=== PATIENT | female | born 1935 | race Caucasian/White ===

== ENCOUNTER → 2016-12-21 | Outpatient (CLI) | payer OTHER ==
[~2016-12-21] MED LIST: ASPEC325 PO; ASPI81TA28 PO; CALC-354 PO; CHOL100027 PO; CYAN10005 PO; GLUC500C60 PO; LEVO75TA5 PO; MULT-506 PO
[2016-12-21 12:09] LABS: BASO % 0.6 %; BASO ABS # 0.04 K/uL (0-0.2); COMPLETE YES; EOS % 1.6 %; HEMATOCRIT 42.2 % (37-47); IG% 0.1 %; LYMPH % 33.9 %; LYMPH ABS # 2.37 K/uL (1.2-3.4); MEAN CELL VOLUME 87.6 fL (80-100); MEAN CORPUSCULAR HEMOGLOBIN 30.1 pg (25-34); MEAN CORPUSCULAR HGB CONC 34.4 g/dl (32-36); MEAN PLATELET VOLUME 10.1 fL (7.4-10.4); MONO % 11.2 %; NEUT % 52.6 %; PLATELET COUNT 299 K/uL (130-400); RED BLOOD COUNT 4.82 M/uL (4.2-5.4); WHITE BLOOD COUNT 6.99 K/uL (4.8-10.8)
[2016-12-21 12:19] LABS: BLOOD UREA NITROGEN 20 mg/dl (7-18); BUN/CREATININE RATIO 20.8 (10-20); CALCIUM 9.9 mg/dl (8.5-10.1); CARBON DIOXIDE 26 mmol/L (21-32); CHLORIDE 106 mmol/L (98-107); CREATININE 0.97 mg/dl (0.60-1.20); GLUCOSE 84 mg/dl (70-99); POTASSIUM 4.1 mmol/L (3.5-5.1); SODIUM 140 mmol/L (136-145)
== END | disposition home or self-care (01) ==
LOC: C.LAB 10:50
PROVIDERS: ATTEND Physician Assistant Medical
DX: E03.9 Hypothyroidism, unspecified (principal); E83.52 Hypercalcemia; R42 Dizziness and giddiness

== ENCOUNTER → 2017-06-04 | Outpatient (CLI) | payer OTHER ==
--- NOTE | 2017-06-04 10:59 | DIAGNOSTIC IMAGING REPORT ---
(CHEST) THORAX WITHOUT CT DOSE: 234.06 mGycm HISTORY: Pulmonary nodules R91.1 Pulmonary nodule pulmonary nodules right lung TECHNIQUE: Multiaxial CT images of the chest were performed without contrast. A dose lowering technique was utilized adhering to the principles of ALARA. COMPARISON: 06/01/2016 FINDINGS: Unchanging micronodule of the right lung. No interval or progressive pulmonary nodules. All dimensions are identical. Hilar and mediastinal regions show no significant adenopathy. IMPRESSION: 1. Stable exam compared to the prior study. 2. Unchanging right hemithoracic nodularity. 3. No evidence for nodularity or additional pathologic change The above report was generated using voice recognition software. It may contain grammatical, syntax or spelling errors. Electronically signed by: Kye Cruz M.D. 06/04/2017 10:58 AM Dictated Date/Time: 06/04/2017 10:55 AM
== END | disposition home or self-care (01) ==
LOC: C.CTS 10:40
PROVIDERS: ATTEND Internal Medicine
DX: R91.1 Solitary pulmonary nodule (principal)

== ENCOUNTER 2018-01-07 10:44 | Emergency (ER) | payer OTHER ==
[~2018-01-07] VITALS: Ht 165.1 cm; Wt 62.5 kg
[~2018-01-07 10:44] MED LIST changes: -LEVO75TA5 PO; -MULT-506 PO
[2018-01-07 10:51] VITALS: Ht 165.1 cm; Wt 62.5 kg
[2018-01-07] MEDS ORDERED: COEN50CA2 (11:20)
[2018-01-07] MEDS ORDERED: FLAX10007 (11:20)
[2018-01-07] MEDS ORDERED: ALBUT/IPRATROP 3MG/0.5MG NEB 3 ML VIAL INH STA (11:41)
[2018-01-07 12:01] VITALS: O2SAT 100
[2018-01-07 12:18] LABS: BASO % 0.6 %; BASO ABS # 0.04 K/uL (0-0.2); EOS % 1.6 %; EOS ABS # 0.11 K/uL (0-0.5); HEMATOCRIT 42.6 % (37-47); IG# 0.01 K/uL (0.00-0.02); LYMPH % 28.5 %; LYMPH ABS # 1.95 K/uL (1.2-3.4); MEAN CELL VOLUME 89.3 fL (80-100); MEAN CORPUSCULAR HEMOGLOBIN 31.4 pg (25-34); MEAN CORPUSCULAR HGB CONC 35.2 g/dl (32-36); MEAN PLATELET VOLUME 9.7 fL (7.4-10.4); MONO % 10.1 %; MONO ABS # 0.69 K/uL (0.11-0.59); NEUT % 59.1 %; NEUT ABS # 4.04 K/uL (1.4-6.5); PLATELET COUNT 266 K/uL (130-400); RED CELL DISTRIBUTION WIDTH CV 13.5 % (11.5-14.5); RED CELL DISTRIBUTION WIDTH SD 44.6 fL (36.4-46.3); WHITE BLOOD COUNT 6.84 K/uL (4.8-10.8)
--- NOTE | 2018-01-07 12:26 | DIAGNOSTIC IMAGING REPORT ---
CHEST 2 VIEWS ROUTINE CLINICAL HISTORY: SOB dyspnea COMPARISON STUDY: 05/07/2016 FINDINGS: Mild chronic interstitial prominence throughout both hemithoraces. No well-defined focal infiltrate. Diaphragms smooth. Calcifications are sharp. IMPRESSION: Mild interstitial prominence throughout both hemithoraces. The bulk of this is chronic. I cannot exclude a mild component of superimposed bronchitis The above report was generated using voice recognition software. It may contain grammatical, syntax or spelling errors. Electronically signed by: Kye Cruz M.D. 01/07/2018 12:25 PM Dictated Date/Time: 01/07/2018 12:23 PM
[2018-01-07 12:27] LABS: INR 0.9 (0.9-1.1); PTT PATIENT 24.2 SECONDS (21.0-31.0)
[2018-01-07 12:31] LABS: ALBUMIN 3.7 gm/dl (3.4-5.0); ALT/SGPT 44 U/L (12-78); AST/SGOT 25 U/L (15-37); BLOOD UREA NITROGEN 15 mg/dl (7-18); CALCIUM 9.4 mg/dl (8.5-10.1); CARBON DIOXIDE 22 mmol/L (21-32); CREATININE 0.92 mg/dl (0.60-1.20); GLUCOSE 86 mg/dl (70-99); LIPASE 246 U/L (73-393); POTASSIUM 3.9 mmol/L (3.5-5.1); SODIUM 140 mmol/L (136-145)
[2018-01-07 12:36] LABS: ALKALINE PHOSPHATASE 70 U/L (45-117); CKMB 1.9 ng/ml (0.5-3.6); TOTAL PROTEIN 7.2 gm/dl (6.4-8.2)
[2018-01-07 13:03] VITALS: TEMP 37.1
[2018-01-07] MEDS ORDERED: LEVO75TA5 PO (13:19)
[2018-01-07] MEDS ORDERED: MULT-506 PO (13:19)
[2018-01-07] MEDS ORDERED: VNTHFA/IN INH (14:17)
[2018-01-07] MEDS ORDERED: AZITTAB PO (14:17)
--- NOTE | 2018-01-07 14:18 | EMERGENCY ROOM VISIT NOTE ---
History First contact with patient: 11:29 Chief Complaint: SHORTNESS OF BREATH Stated Complaint: SOB History of Present Illness The patient is a 82 year old female who presents to the Emergency Room via ALS with complaints of shortness of breath. The patient states that she has been having problems with shortness of breath for the past year but got worse over the last week. The patient states that the shortness of breath can occur whether she is laying down and sitting up or standing. The patient denies any chest pain. She states that "I just cannot get a deep enough breath". The patient denies any recent URI symptoms of fever, cough, head congestion, sore throat. The patient denies any leg swelling. The patient denies any recent travel. Patient is not on any hormone replacement therapy. The patient has never smoked. The patient states that she has been doctoring with her family doctor and has been referred to both cardiology and pulmonology for her shortness of breath. She had a stress test done in September which she states was negative. She also states that she had pulmonary function tests which were normal. She is unsure of her doctors names except for her family doctor who is Dr. Valdo Cloud. The patient also states that she has been under slightly increased stress lately because her dog just and she just received its ashes this week. Patient also has been complaining of some dizziness which she states she gets when she is short of breath. She also states that her blood pressure was much higher today when she checked in. She states normally her blood pressure is like 115/65. She states she works out on a regular basis and does gardening routinely. She is very active. She states she called her family doctor this morning due to the increased shortness of breath and she was instructed to come to the emergency room. Review of Systems 10 system review was performed and was negative unless stated otherwise history of present illness. Past Medical/Surgical History Surgical Problems: (1) S/P cholecystectomy (2) Status post surgical removal of ganglion cyst Family History Diabetes mellitus Gallbladder disease Heart disease Hypertension Lung disease Social History Smoking Status: Never Smoker Alcohol Use: none Marital Status: Housing Status: lives alone Occupation Status: retired Current/Historical Medications Scheduled Aspirin (Aspirin Ec), 81 MG PO Q2D Calcium Carbonate-Cholecalcife (Caltrate 600+D), 1 TAB PO DAILY Cholecalciferol (Vitamin D 1000 Unit), 1,000 INTER.UNIT PO QAM Cyanocobalamin (Vitamin B-12), 1,000 MCG PO DAILY Levothyroxine Sodium (Levothyroxine Sodium), 75 MCG PO QAM Multivitamin (Multivitamin), 1 TAB PO QAM Miscellaneous Medications Coenzyme Q10 (Ubidecarenone) (Co Q-10), Unknown Dose Flaxseed (Linseed) (Flax Seed Oil) Physical Exam Vital Signs Date Time Temp Pulse Resp B/P (MAP) Pulse Ox O2 Delivery O2 Flow Rate FiO2 01/07/18 13:46 150/72 01/07/18 13:44 69 12 98 01/07/18 13:31 158/74 01/07/18 13:29 69 13 99 01/07/18 13:25 71 01/07/18 13:16 145/82 01/07/18 13:14 68 12 100 01/07/18 13:03 37.1 79 19 170/78 100 Room Air 01/07/18 13:01 179/85 01/07/18 13:00 168/100 01/07/18 12:59 73 178/78 79 168/100 79 179/85 01/07/18 12:59 74 16 178/78 100 01/07/18 12:44 71 17 100 01/07/18 12:29 73 21 100 01/07/18 12:14 72 19 100 01/07/18 12:01 69 19 170/78 100 Room Air 01/07/18 12:01 100 Room Air 01/07/18 12:01 170/78 01/07/18 11:59 67 20 100 01/07/18 11:58 166/79 01/07/18 11:44 73 14 98 01/07/18 11:29 69 18 100 01/07/18 11:14 69 16 99 01/07/18 10:59 75 18 100 01/07/18 10:51 100 Room Air 01/07/18 10:51 37.1 80 28 178/84 100 Room Air 01/07/18 10:51 100 Room Air 01/07/18 10:48 82 01/07/18 10:47 178/84 Physical Exam GENERAL: 82-year-old white female appears in no acute distress. MENTAL Status: Alert and oriented 3. EYES: PERRLA. EOMs intact. EARS: Canals clear. TMs without fluid level noted. NECK: Supple, no lymphadenopathy noted. No carotid bruits noted. LUNGS: Clear auscultation without wheezes rales or rhonchi. CARDIAC: Regular rate and rhythm without murmur. Pulses is full and equal throughout. ABDOMEN: Positive bowel sounds all 4 quadrants. Soft, nontender to palpation without organomegaly or masses. NEURO:Cranial nerves two through 12 intact. Cerebellar function intact with [id number]. Fine motor intact with alternating finger motions. LOWER EXTREMITIES: No cyanosis or edema noted. Calves are nontender to palpation. Medical Decision & Procedures ER Provider Diagnostic Interpretation: CHEST 2 VIEWS ROUTINE CLINICAL HISTORY: SOB dyspnea COMPARISON STUDY: 05/07/2016 FINDINGS: Mild chronic interstitial prominence throughout both hemithoraces. No well-defined focal infiltrate. Diaphragms smooth. Calcifications are sharp. IMPRESSION: Mild interstitial prominence throughout both hemithoraces. The bulk of this is chronic. I cannot exclude a mild component of superimposed bronchitis The above report was generated using voice recognition software. It may contain grammatical, syntax or spelling errors. Laboratory Results 01/07/18 12:06 Red Blood Count 4.77, Mean Corpuscular Volume 89.3, Mean Corpuscular Hemoglobin 31.4, Mean Corpuscular Hemoglobin Concent 35.2, Mean Platelet Volume 9.7, Neutrophils (%) (Auto) 59.1, Lymphocytes (%) (Auto) 28.5, Monocytes (%) (Auto) 10.1, Eosinophils (%) (Auto) 1.6, Basophils (%) (Auto) 0.6, Neutrophils # (Auto ) 4.04, Lymphocytes # (Auto) 1.95, Monocytes # (Auto) 0.69, Eosinophils # (Auto ) 0.11, Basophils # (Auto) 0.04 01/07/18 12:06 Test 01/07/18 12:06 01/07/18 12:12 White Blood Count 6.84 K/uL (4.8-10.8) Red Blood Count 4.77 M/uL (4.2-5.4) Hemoglobin 15.0 g/dL (12.0-16.0) Hematocrit 42.6 % (37-47) Mean Corpuscular Volume 89.3 fL (80-100) Mean Corpuscular Hemoglobin 31.4 pg (25-34) Mean Corpuscular Hemoglobin Concent 35.2 g/dl (32-36) Platelet Count 266 K/uL (130-400) Mean Platelet Volume 9.7 fL (7.4-10.4) Neutrophils (%) (Auto) 59.1 % Lymphocytes (%) (Auto) 28.5 % Monocytes (%) (Auto) 10.1 % Eosinophils (%) (Auto) 1.6 % Basophils (%) (Auto) 0.6 % Neutrophils # (Auto) 4.04 K/uL (1.4-6.5) Lymphocytes # (Auto) 1.95 K/uL (1.2-3.4) Monocytes # (Auto) 0.69 K/uL (0.11-0.59) Eosinophils # (Auto) 0.11 K/uL (0-0.5) Basophils # (Auto) 0.04 K/uL (0-0.2) RDW Standard Deviation 44.6 fL (36.4-46.3) RDW Coefficient of Variation 13.5 % (11.5-14.5) Immature Granulocyte % (Auto) 0.1 % Immature Granulocyte # (Auto) 0.01 K/uL (0.00-0.02) Prothrombin Time 9.9 SECONDS (9.0-12.0) Prothromb Time International Ratio 0.9 (0.9-1.1) Activated Partial Thromboplast Time 24.2 SECONDS (21.0-31.0) Partial Thromboplastin Ratio 0.9 Anion Gap 6.0 mmol/L (3-11) Est Creatinine Clear Calc Drug Dose 43.2 ml/min Estimated GFR () 67.7 Estimated GFR (Non- 58.4 BUN/Creatinine Ratio 16.3 (10-20) Calcium Level 9.4 mg/dl (8.5-10.1) Total Bilirubin 0.3 mg/dl (0.2-1) Direct Bilirubin < 0.1 mg/dl (0-0.2) Aspartate Amino Transf (AST/SGOT) 25 U/L (15-37) Alanine Aminotransferase (ALT/SGPT) 44 U/L (12-78) Alkaline Phosphatase 70 U/L (45-117) Total Creatine Kinase 94 U/L (26-192) Creatine Kinase MB 1.9 ng/ml (0.5-3.6) Creatine Kinase MB Ratio 2.0 (0-3.0) Troponin I < 0.015 ng/ml (0-0.045) Pro-B-Type Natriuretic Peptide 232 pg/ml (0-1800) Total Protein 7.2 gm/dl (6.4-8.2) Albumin 3.7 gm/dl (3.4-5.0) Lipase 246 U/L (73-393) Bedside D-Dimer 341 ng/mlFEU (0-450) Medications Administered Medications (Trade) Dose Ordered Sig/Theresa Route Start Time Stop Time Status Last Admin Dose Admin Albuterol/ Ipratropium (Duoneb) 3 ml NOW STAT INH 01/07/18 11:41 01/07/18 11:44 DC 01/07/18 12:08 3 ML ECG Per My Interpretation Indication: SOB/dyspnea Rhythm: normal sinus Findings: no acute ischemic change Change: no significant change ED Course She was evaluated. The patient is EMR and medication list were reviewed. I had the family independence case manager obtain the patient's prior stress test which was done at [facility] on October 01, 2017 and was negative. She also had a pulmonary function test done in [place] [address] becker which revealed borderline normal function. She also had a CT performed of her chest on June 04, 2017 which revealed a micronodule in the right lung which was unchanged from prior CT of June 01, 2016. The patient was placed on a monitor and continuous pulse ox. IV access was obtained. CBC and differential, renal profile, coags, CK-MB, renal profile, LFTs and lipase levels were ordered. Troponin, BNP and [id number]-[id number] d-dimer was also ordered. Chest x-ray was ordered interpreted by the radiologist as above with possibly mild bronchitis but otherwise no acute finding.. EKG was ordered interpreted as above without any acute findings. Orthostatic vitals were ordered. Orthostatics were normal. The patient's blood pressure remained elevated throughout ER stay. Labs are reviewed and were unremarkable. Troponin was normal. D-dimer was within normal range. Patient was informed of all findings. The patient was independently evaluated by Dr. Gonzalez who agreed with treatment plan. The patient was discharged home in stable condition. Medical Decision Differential diagnosis include pulmonary embolus, acute MN, pneumonia, bronchitis, CHF, The patient has been under the care of Dr. Valdo Cloud for her shortness of breath and has been referred to both cardiology and pulmonology and has had an extensive workup which has been essentially negative. I do not feel the patient needs to be admitted for further evaluation. [place] Drug Monitoring Program Search Results: patient reviewed within database Medication Reconcilliation Current Medication List: was personally reviewed by me Blood Pressure Screening Patient's blood pressure: Elevated blood pressure Blood pressure disposition: Referred to PCP Impression Primary Impression: Acute bronchitis Additional Impressions: Elevated blood pressure reading Dizziness Departure Information Dispostion Home / Self-Care Condition GOOD Prescriptions Azithromycin (ZITHROMAX Z-EDGAR) 250 Mg Tab 1 PKT PO UD for 5 Days, #1 PKT Prov: Tammy Cruz PA-C 01/07/18 Albuterol Hfa (VENTOLIN HFA) 200 Puffs/[id number] Mcg Aers 2 PUFFS INH QID for 5 Days, #1 INHALER Prov: Tammy Cruz PA-C 01/07/18 Referrals Valdo Cloud M.D. (PCP) Forms HOME CARE DOCUMENTATION FORM, IMPORTANT VISIT INFORMATION Patient Instructions ED Dyspnea Shortness of Breath, My [facility] Additional Instructions Keep well-hydrated. Take Z-Edgar as prescribed. Use a Ventolin HFA inhaler 2 puffs 4 times a day for 5 days then on an as-needed basis for shortness of breath. Recommend follow-up with your family doctor on Saturday for recheck of your symptoms as well as recheck of your blood pressure since it was elevated in today's ER visit. If you experience any severe chest pain, worsening of the shortness of breath return to ER. Problem Qualifiers Primary Impression: Acute bronchitis Bronchitis organism: unspecified organism Qualified Codes: J20.9 - Acute bronchitis, unspecified
[2018-01-07 14:36] VITALS: BP 153/75; PULSE 69; O2SAT 100
--- NOTE | 2018-01-07 18:39 | EMERGENCY ROOM VISIT NOTE ---
ED Visit Note First contact with patient: 11:29 I have personally evaluated this patient examined her and reviewed the pertinent labs and data. I have discussed the case with Tammy Cruz, the physician assistant reading teacher and agree with the plan. Please refer to the PA note. This patient has had chronic shortness of breath. On my exam she looks well and is in no distress. Her lungs are clear. Chest x-ray shows no definite acute findings. she has nothing to suggest cardiac disease her EKG is unremarkable. Her d-dimer is not elevated. She did feel better with neb. We will give her albuterol inhaler and antibiotics and have her follow-up with her surfacer her regular doctor.
== END 2018-01-07 14:38 | disposition home or self-care (01) ==
LOC: EDBD 10:44 → C.EDC 10:45
DX: J20.9 Acute bronchitis, unspecified (principal); R03.0 Elevated blood-pressure reading, without diagnosis of hypertension; R42 Dizziness and giddiness

== ENCOUNTER → 2018-01-13 | Outpatient (CLI) | payer OTHER ==
[~2018-01-13] MED LIST changes: -ASPEC325 PO; +AZITTAB PO; +COEN50CA2; +FLAX10007; -GLUC500C60 PO; +LEVO75TA5 PO; +MULT-506 PO; +VNTHFA/IN INH
== END | disposition home or self-care (01) ==
LOC: C.LABBC 11:43
PROVIDERS: ATTEND Physician Assistant Medical
DX: E03.9 Hypothyroidism, unspecified (principal)

== ENCOUNTER 2020-04-22 08:30 | Observation (INO) ==
--- NOTE | 2020-04-15 12:34 | PAT Medication Instructions ---
Medication Instructions Date of Service April 15, 2020 Home Medications calcium carbonate 600 mg (1,500 mg)-vitamin D3 400 unit tablet 1 tab PO PM cholecalciferol (vitamin D3) 25 mcg (1,000 unit) capsule 1,000 unit PO QPM coenzyme Q10 200 mg capsule 200 mg PO QAM cyanocobalamin (vitamin B-12) 1,000 mcg tablet 1,000 mcg PO QAM aspirin [Aspir-81] 81 mg PO Q OTHER DAY levothyroxine 75 mcg PO QAM [id number] fumarate-FA [] 1 tab PO DAILY biotin 1 mg PO DAILY STOP taking 2 weeks before surgery If surgery is within 2 weeks, stop taking as soon as possible. coenzyme Q10 200 mg capsule 200 mg PO QAM DO NOT take the morning of surgery cyanocobalamin (vitamin B-12) 1,000 mcg tablet 1,000 mcg PO QAM [id number] fumarate-FA [] 1 tab PO DAILY biotin 1 mg PO DAILY Take morning of surgery With a small sip of water, OTHERWISE NOTHING TO EAT OR DRINK AFTER MIDNIGHT: aspirin [Aspir-81] 81 mg PO Q OTHER DAY (if scheduled) levothyroxine 75 mcg PO QAM Take evening before surgery calcium carbonate 600 mg (1,500 mg)-vitamin D3 400 unit tablet 1 tab PO PM cholecalciferol (vitamin D3) 25 mcg (1,000 unit) capsule 1,000 unit PO QPM Other Notes If you have any questions please call us at [phone] or [phone] or [phone] or [phone]
--- NOTE | 2020-04-18 09:04 | Anesthesiology Consultation ---
Date of Service April 18, 2020 Assessment & Plan (1) Encounter for pre-operative examination: COVID Status: As of 04/18 assessment, patient denies travel to endemic area, known exposure/sick contacts, or symptoms of COVID19. Patient instructed that they and their household members must follow strict social distancing guidelines, wear a mask in public and avoid travel for 14 days prior to surgery. Preoperative COVID19 testing to be completed prior to surgery per surgeon's arrangements. Patient made aware to self-isolate as much as possible between COVID testing and surgery. Chart Review Chart Review: Acceptable Risk for Surgery and Patient seen in Pre Admission Testing Teaching & Discussion Instructed NPO after midnight before surgery, except medications with 15 cc of water. Medication instructions provided according to the PAT guidelines. History Surgery Operation Date: 04/22/20 12:30 Proposed Procedures p Left Reverse Total Shoulder Arthroplasty - Juan Lindo, Height/Weight Height: 5 ft 5 in Weight: 60.8 kg Allergies Allergy/AdvReac Type Severity Reaction Status Date / Time capsaicin Allergy Mild Liver Verified 04/18/20 08:48 complications diclofenac Allergy Mild Liver Verified 04/18/20 08:48 complications Diclopak Allergy Mild "LIVER Verified 01/07/18 11:15 COMPLICATIONS" Sulfa (Sulfonamide Allergy Unknown Itching Verified 04/18/20 08:48 Antibiotics) and redness tetanus toxoid, adsorbed AdvReac Mild Redness, Verified 04/18/20 08:48 warmth morphine AdvReac Unknown Hypotension Verified 04/14/20 10:47 Medications Home Medications Medication Instructions Recorded Confirmed Last Taken calcium carbonate 600 mg (1,500 1 tab PO PM tab 02/25/19 04/14/20 10/19/19 mg)-vitamin D3 400 unit tablet cholecalciferol (vitamin D3) 25 1,000 unit PO QPM #90 cap 02/25/19 04/14/20 10/19/19 mcg (1,000 unit) capsule coenzyme Q10 200 mg capsule 200 mg PO QAM cap 02/25/19 04/14/20 10/19/19 cyanocobalamin (vitamin B-12) 1,000 mcg PO QAM #90 tab 02/25/19 04/14/20 10/19/19 1,000 mcg tablet aspirin [Aspir-81] 81 mg PO Q OTHER DAY 10/19/19 04/14/20 10/16/19 levothyroxine 75 mcg PO QAM 10/19/19 04/14/20 10/20/19 05:15 [id number] fumarate-FA 1 tab PO DAILY 04/14/20 04/14/20 Unknown [] biotin 1 mg PO DAILY 04/14/20 04/14/20 Unknown Past Medical History Medical History De Quervain's tenosynovitis, right Hearing difficulty Hip arthritis Hyperlipidemia Hypotension occasional, advised to increase salt if recurrence Hypothyroidism Impaired fasting glucose Pulmonary nodule under surveillance, stable Exercise / Class Metabolic Activity II 4-5 Yardwork/Stairs/Walk up hill (Denies CP or SOB with 1 FOS) Past Family History Family History Mother Hypertension Cardiac disorder Stroke Asthma Father Myocardial infarction Brother Prostate cancer Denies family history of Ovarian cancer Breast cancer Colorectal cancer Past Surgical History Surgical History H/O cataract extraction R/L H/O vaginal hysterectomy History of basal cell carcinoma History of breast biopsy LEFT History of colonoscopy History of liver biopsy History of salpingo-oophorectomy History of SCC (squamous cell carcinoma) of skin NOSE History of tonsillectomy Hx of cholecystectomy S/P skin biopsy Status post de Quervain's release surgery 09/2019, Dr Sin Past Anesthesia History No Hx of Anesthesia Complications and No Family Hx of Anesthesia Complications History of PONV No Hx of PONV and Hx of Motion Sickness (occasional) Social History Smoking Status: Never smoker Do You Dip or Chew Tobacco: No Hx Alcohol Use: No Hx Substance Use: No substance use type: does not use Review of Systems Pt denies any recent chest pain, shortness of breath, palpitations, cough, fever, URI, or uncontrolled acid reflux. Physical Exam Vital Signs BP: 123/74 P: 80bpm SPO2: 98% RA T: 97.7 F R: 12 ENMT Mouth: + dental restorations (partial upper and lower); no chipped teeth and no loose teeth Thyromental Distance: < 3.5 Finger Breadths (2.5) Mallampati Class: I Neck + shortened thyromental distance; neck extension not limited Respiratory normal respiratory effort Auscultation: lungs clear to auscultation bilaterally Cardiovascular Rate/Rhythm: regular rate and regular rhythm Heart Sounds: no murmur Vessels: no carotid bruit Extremities: no edema Testing Laboratory Results PT 10.4 Seconds (9.0-12.0) 04/18/20 09: INR 1.0 (0.9-1.1) 04/18/20 09: APTT 26.6 Seconds (21.0-31.0) 04/18/20 09:26 Blood Type B Positive 04/18/20 09:26 Antibody Screen NEGATIVE 04/18/20 09:26 03/17/20 WBC: 7.62 H/H: 15/44.7 PLATELETS: 326 SODIUM: 142 POTASSIUM: 4.1 CHLORIDE: 111 CO2: 25 BUN: 14 CREATININE: 0.88 GLUCOSE: 88 Electrocardiogram Date: 04/18/20 Findings: + NSR @ (70bpm) Chest X-Ray Date: 04/18/20 Findings: + NAD
[2020-04-18 10:13] LABS: Partial Thromboplastin Time 26.6 Seconds (21.0-31.0); Prothrombin Time 10.4 Seconds (9.0-12.0)
--- NOTE | 2020-04-18 10:16 | XRay Report ---
XR chest Pre-admission PA/Lat HISTORY: 84 years-old Female pat preoperative exam. No acute chest complaints COMPARISON: Chest and rib radiographs 02/17/2019 TECHNIQUE: PA and lateral views of the chest FINDINGS: Cardiac mediastinal and hilar silhouettes are within normal limits. Unchanged mild right hemidiaphrag m elevation. Calcified plaque of the thoracic aortic arch. Mild chronic interstitial coarsening. No p neumothorax, pleural effusion, airspace consolidation or overt pulmonary edema. Bones of the chest ap pear grossly intact. Cholecystectomy clips. IMPRESSION: No acute process. ACT 112: Negative or not required by law. The above report was generated using voice recognition software. It may contain grammatical, syntax o r spelling errors. Electronically signed by: Juan Sawyer M.D. 04/18/2020 10:15 AM
--- NOTE | 2020-04-18 14:00 | Electrocardiogram Report ---
Test Reason : Blood Pressure : / mmHG Vent. Rate : 070 BPM Atrial Rate : 070 BPM P-R Int : 182 ms QRS Dur : 072 ms QT Int : 404 ms P-R-T Axes : 046 066 071 degrees QTc Int : 436 ms Normal sinus rhythm Normal ECG When compared with ECG of 07-JAN-2018 12:00, No significant change was found Confirmed by Jacob Robison ([id number]) on 04/18/2020 1:59:55 PM Referred By: Juan Lindo Confirmed By:Jacob Robison
--- NOTE | 2020-04-21 07:30 | History & Physical Report ---
Date of Service April 21, 2020 Assessment & Plan (1) Rotator cuff tear, left: We will proceed with a left reverse shoulder arthroplasty. Postoperatively she will be placed in a sling and kept overnight in the hospital for postoperative medical management. She plans to use [facility] upon discharge. Present on Admission?: Yes History of Present Illness Chief Complaint: Chronic rotator cuff tear of the left shoulder Primary Care Provider: Valdo Cloud MD Aziza is a pleasant 84-year-old female who fell back in November. She has been having significant shoulder pain and weakness since. She is unable to do things she is enjoys such as play with her grandkids. X-rays did not look too bad. MRI of her shoulder showed a large retracted rotator cuff tear. There was significant atrophy. This is obviously an acute on chronic tear. After discussions in the office, she elected proceed with a reverse left shoulder arthroplasty. Allergies Allergy/AdvReac Type Severity Reaction Status Date / Time capsaicin Allergy Mild Liver Verified 04/18/20 08:48 complications diclofenac Allergy Mild Liver Verified 04/18/20 08:48 complications Diclopak Allergy Mild "LIVER Verified 01/07/18 11:15 COMPLICATIONS" Sulfa (Sulfonamide Allergy Unknown Itching Verified 04/18/20 08:48 Antibiotics) and redness tetanus toxoid, adsorbed AdvReac Mild Redness, Verified 04/18/20 08:48 warmth morphine AdvReac Unknown Hypotension Verified 04/14/20 10:47 Home Medications Home Medications Medication Instructions Recorded Confirmed Type calcium carbonate 600 mg (1,500 1 tab PO PM tab 02/25/19 04/14/20 History mg)-vitamin D3 400 unit tablet cholecalciferol (vitamin D3) 25 1,000 unit PO QPM #90 cap 02/25/19 04/14/20 History mcg (1,000 unit) capsule coenzyme Q10 200 mg capsule 200 mg PO QAM cap 02/25/19 04/14/20 History cyanocobalamin (vitamin B-12) 1,000 mcg PO QAM #90 tab 02/25/19 04/14/20 History 1,000 mcg tablet aspirin [Aspir-81] 81 mg PO Q OTHER DAY 10/19/19 04/14/20 History levothyroxine 75 mcg PO QAM 10/19/19 04/14/20 History [id number]-[id number] fumarate-FA 1 tab PO DAILY 04/14/20 04/14/20 History [] biotin 1 mg PO DAILY 04/14/20 04/14/20 History Past Med/Surg History Medical History De Quervain's tenosynovitis, right Hearing difficulty Hip arthritis Hyperlipidemia Hypotension occasional, advised to increase salt if recurrence Hypothyroidism Impaired fasting glucose Pulmonary nodule under surveillance, stable Surgical History H/O cataract extraction R/L H/O vaginal hysterectomy History of basal cell carcinoma History of breast biopsy LEFT History of colonoscopy History of liver biopsy History of salpingo-oophorectomy History of SCC (squamous cell carcinoma) of skin NOSE History of tonsillectomy Hx of cholecystectomy S/P skin biopsy Status post de Quervain's release surgery 09/2019, Dr Sin Family History Mother Hypertension Cardiac disorder Stroke Asthma Father Myocardial infarction Brother Prostate cancer Denies family history of Ovarian cancer Breast cancer Colorectal cancer Social History Smoking Status: Never smoker Second Hand Exposure: No; Do You Dip or Chew Tobacco: No; Tobacco Cessation Education Requested by Patient: No Hx Alcohol Use: No Hx Substance Use: No Preferred Language: Persian Communication Ability: Effective Visual Impairment: No Limitations Hearing Ability: Use of Hearing Aid 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 Beliefs That Will Affect Care: None marital status: Current Living Situation: Alone current occupational status: retired Other Information That Helps Us Care for You: No Feels Safe at Home: Yes Safety Concerns: Feels Safe At This Time Childhood Exposure to Second-Hand Smoke: Yes caffeine: Yes Dental Care, Regularly: Yes Physical Activity Frequency: Daily Seatbelt Use: always Sunscreen Use: Yes Review of Systems Review of Systems: All systems reviewed & are unremarkable except as noted in HPI & below Physical Exam Constitutional: WD/WN, vitals as above Eyes: PERRL, conjunctivae normal, anicteric sclerae ENMT: external ear and nose normal, oropharynx normal Neck: trachea midline, no thyromegaly Respiratory: normal respiratory effort Cardiovascular: RRR, no murmur, no edema Gastrointestinal (Abdomen): normal bowel sounds, soft, nontender, no hepatosplenomegaly Musculoskeletal: Physical examination of the left shoulder reveals decreased range of motion and significant weakness. There is tenderness palpation along the anterior glenohumeral joint line. The right upper extremity is neurovascularly intact. Psychiatric: A+Ox3, euthymic affect Results & Data Results & Data ([facility]) Diagnostic Findings Radiographs of the left shoulder are negative MRI of the left shoulder does show a large retracted rotator cuff tear involving the posterior superior rotator cuff. Is retracted towards the level of the glenoid. There is significant atrophy of the supraspinatus muscle belly. PG Care Time/CCT Total # of Minutes Spent Total Time Spent with Patient: Total time spent is greater than 50% in coordination of care (as documented) at patient's floor/unit and/or counseling patient: Coding Level of Care Code 50798 Initial Inpt Care Lvl 3 Diagnoses Rotator cuff tear, left M75.102
--- NOTE | 2020-04-22 08:26 | History & Physical Bridge Note ---
Date of Service April 22, 2020 History & Physical Bridge Note I have examined the patient, reviewed the History & Physical and in the interval since the performance of the History & Physical I have noted the following changes of clinical significance: no changes noted
[~2020-04-22 08:30] MED LIST changes: +ACETAMINOPHEN 500 MG TAB PO SCH; -ASPI81TA28 PO; -AZITTAB PO; +BUPIVACAINE 0.5 % 5 MG/1 ML PF 10ML VIAL ONE; -CALC-354 PO; +CEFAZOLIN 1000MG 1,000 MG/7.5 ML SYR IV SCH; -CHOL100027 PO; -COEN50CA2; -CYAN10005 PO; +FAMOTIDINE 20 MG TAB PO SCH; -FLAX10007; +GABAPENTIN 300 MG CAP PO SCH; -LEVO75TA5 PO; +LR 15ML/HR IV SCH; +LR 60ML/HR IV SCH; -MULT-506 PO; +ROPIVACAINE 0.5% HCL/PF 150 MG, BUPIVACAINE 0.5% MPF 30 ML, EPINEPHrine 30MG/30ML (OR U... INSTIL SCH; +TRANEXAMIC ACID 1,000 MG **IV Intra-op IV SCH; +TRANEXAMIC ACID 1,000 MG **IV Pre-op IV SCH; -VNTHFA/IN INH; +dexAMETHasone 4 MG TAB PO SCH
[2020-04-22] MEDS ORDERED: PROPOFOL IV EMULSION 10 MG/ML 20 ML VIAL IV ONE (09:39)
[2020-04-22] MEDS ORDERED: LIDOCAINE 2% 20 MG/ML 5 ML SYR IV ONE (09:39)
[2020-04-22] MEDS ORDERED: ROCURONIUM BROMIDE 10 MG/ML 5 ML VIAL IV ONE (09:39)
[2020-04-22] MEDS ORDERED: DEXAMETHASONE SOD INJ 4 MG/ML VIAL ONE (09:39)
[2020-04-22] MEDS ORDERED: fentaNYL citrate 100 MCG/2 ML VIAL ONE (09:40)
[2020-04-22] MEDS ORDERED: MIDAZOLAM HCL 1 MG/ML 2ML VIAL ONE (09:40)
[2020-04-22] MEDS ORDERED: ORTHO JOINT ANESTHETIC ONE (10:05)
[2020-04-22] MEDS ORDERED: LIDOCAINE HCL 2% MPF (LOCAL) 5 ML VIAL INFIL ONE (10:10)
[2020-04-22] MEDS ORDERED: PROMETHAZINE HCL 12.5 MG in SODIUM CHLORIDE 0.9% 50 ML IV PRN (10:11)
[2020-04-22] MEDS ORDERED: fentaNYL citrate 100 MCG/2 ML VIAL IV PRN (10:11)
[2020-04-22] MEDS ORDERED: ONDANSETRON INJ 2 MG/ML 2 ML VIAL IV PRN ×2 (10:11→13:47)
[2020-04-22] MEDS ORDERED: ATROPINE SULFATE 0.1 MG/ML 10ML SYR IV PRN (10:11)
[2020-04-22] MEDS ORDERED: ePHEDrine sulfate 50 MG/ML AMP IV PRN (10:11)
[2020-04-22] MEDS ORDERED: METOCLOPRAMIDE HCL INJ 5 MG/ML 2 ML VIAL IV PRN ×2 (10:11→13:47)
[2020-04-22] MEDS ORDERED: HYDROmorphone INJ 2 MG/ML SYR/VIAL IV PRN (10:11)
--- NOTE | 2020-04-22 12:05 | Operative Report ---
PG Post Operative Report Pre & Post Diagnosis Operation Date: 04/22/20 10:40 Pre-Op Diagnosis: Chronic retracted rotator cuff tear of the left shoulder with disease of the long head of the biceps tendon Post-Op Diagnosis: Chronic retracted rotator cuff tear of the left shoulder with disease of the long head of the biceps tendon I identified the patient and participated in the time-out.: Yes Procedure Operation Date: 04/22/20 10:40 Actual Procedures p Left Reverse Total Shoulder Arthroplasty with open biceps tenodesis as a distinct and separate procedure (modifier 59) (Left) - Juan Lindo DO Surgeon Juan Lindo DO Traveling Clerk Juan Barnard PAC Estimated Blood Loss 200 Findings Consistent with Post-Op Diagnosis Specimens Left humeral head Complications none Disposition Disposition: Recovery Room Indications Aziza is a pleasant 84-year-old female who presented my office with chronic left shoulder pain and increased weakness after more recent fall. She has had inability forward elevate her left arm. She is unable to play with her gra ndkids. After failing conservative treatment, she has elected to proceed with a left reverse shoulder arthroplasty. Description of Procedure A CPT code modifier 59: The long head of the biceps tendon was enlarged and inflamed consistent with tendinopathy. A tenodesis was opted. This was a separate and distinct portion of the procedure. For these reasons, a CPT code modifier 59 will be added to this case. Implants used: I used a [employer] Comprehensive reverse total shoulder arthroplasty system with a size 10 press fit micro-humeral stem, a +6 offset humeral tray and a standard humeral bearing, a small augment 25 mm mini baseplate with a 6.5 mm central screw and superior and inferior locking screws, and a size 36 mm eccentric glenosphere. Aziza arrived at [facility] for the above procedure. She was seen in the preoperative holding area and the operative extremity was identified and signed. She was given a preoperative antibiotic, TXA, and an interscalene nerve block. She was taken back to the operating room, laid on table in supine position, and put under general anesthesia. She was then put into the beachchair position. The shoulder was then prepped and draped in sterile fashion. A timeout was done and the patient and the operative extremity was properly identified. A deltopectoral approach was used. Dissection was taken down through the fascia and the deltoid was retracted laterally and the conjoined tendon was retracted medially. The anterior shoulder was exposed. The biceps groove was opened up and the biceps tendon was examined extensively. The biceps tendon demonstrated enlargement and inflammatory changes consistent with longstanding inflammation in the context of osteoarthritis and cuff arthropathy. The long head of the biceps tendon was then tenodesed to the upper border of the pectoralis major. This was a separate and distinct portion of the procedure. The subscapularis was then directly released off the lesser tuberosity with a peel technique. The inferior capsule was released and the humeral head was dislocated. A canal finding reamer was sent down the center of the humeral canal. Sequential reaming up to a size 10 reamer was done. Off that reamer, a proximal humeral resection guide was placed. The proximal humerus was resected at 135 of inclination and 25 of retroversion. Osteophytes were then removed and the glenoid was exposed. Time was spent doing a complete capsular and labral release. The glenoid guide was then placed in the inferior aspect of the glenoid. A 3.2 mm Steinmann pin was then placed into the glenoid vault at 10 of inclination. The glenoid baseplate was then reamed for a small augmented glenoid baseplate. The final size 25 mm small augment baseplate was then impacted in the place. A 6.5 mm central screw was then placed followed by superior and inferior locking screws. A 36 mm eccentric glenosphere was then impacted into place. Surrounding soft tissues were then injected with 100 cc an orthopedic pain control cocktail. The proximal humerus was then exposed. Sequential broaching of the humerus up to a size 10 broach was done. Off that broach a +6 offset humeral tray was trialed. The shoulder was then reduced, brought through a full range of motion, and felt to be stable. The shoulder was then dislocated and the broach was removed. The final size 10 micro press-fit humeral stem was then impacted into place. A standard humeral bearing was then snapped onto a +6 offset humeral tray. The humeral tray was then impacted onto the humeral stem. The shoulder was once again reduced, brought through a full range of motion, and felt to be stable. The subscapularis was then tenodesed back to the lesser tuberosity with transosseous FiberWire sutures and side to side sutures with the arm in 45 of external rotation. A dilute betadyne lavage was then done for 3 minutes. The joint was then irrigated with normal saline solution. Hemostasis was obtained. The interval was closed with 2-0 Vicryl suture. The skin was then closed with 2-0 Vicryl and jered. A Silverlon was placed and the arm was rested in a regular arm sling. She was then extubated and transferred to a hospital bed. She taken to the postanesthesia care unit in stable condition. She tolerated the procedure well. Juan Barnard PA-C, was present for the entire procedure. He was critical for patient positioning, prepping, draping, retraction exposure, wound closure and application of sterile dressing. I attest to the content of the Intraoperative Record and any orders documented therein. Any exceptions are noted below.
--- NOTE | 2020-04-22 12:44 | XRay Report ---
XR shoulder LT min 2V routine CLINICAL HISTORY: Post shoulder surgery COMPARISON: None. DISCUSSION: Anatomic alignment post total left shoulder arthroplasty. Good contact between prosthetic and underlying bone. Expected soft tissue postoperative change IMPRESSION: Anatomic alignment post total left shoulder arthroplasty. ACT 112: Negative or not required by law. The above report was generated using voice recognition software. It may contain grammatical, syntax or spelling errors. Electronically signed by: Kye Cruz M.D. 04/22/2020 12:42 PM
--- NOTE | 2020-04-22 12:45 | Anesthesiology Progress Note ---
Date of Service April 22, 2020 Anesthesia Post Procedure Vital Signs Vital Signs: Temp Pulse Pulse Resp BP Pulse Ox 04/22/20 12:40 69 16 147/70 H 99 04/22/20 12:30 71 14 146/73 H 100 04/22/20 12:22 36.0 C L 70 12 169/76 H 100 04/22/20 09:40 69 20 151/73 H 100 04/22/20 08:52 37.2 C 80 18 128/83 100 Transfer of Care Handoff Completed per policy Notes Mental Status: alert / awake / arousable and participated in evaluation Patient Amnestic to Procedure: Yes Nausea / Vomiting: adequately controlled Pain: adequately controlled Airway Patency, RR, SpO2: stable & adequate BP & HR: stable & adequate Hydration State: stable & adequate Anesthetic Complications: no major complications apparent
[2020-04-22] MEDS ORDERED: NALOXONE HCL 0.4 MG/1 ML VIAL/CARP IV PRN (13:47)
[2020-04-22] MEDS ORDERED: OXYCODONE HCL IR 5 MG TAB (IMMEDIATE RELEASE) PO PRN (13:47)
[2020-04-22] MEDS ORDERED: MAGNESIUM HYDROXIDE SUSP 30 ML UDC PO PRN (13:47)
[2020-04-22] MEDS ORDERED: HYDROmorphone INJ 0.5 MG/0.5 ML SYR IV PRN (13:47)
[2020-04-22] MEDS ORDERED: bisacodyL 10 MG SUPP PR PRN (13:47)
[2020-04-22] MEDS: ACETAMINOPHEN 500 MG TAB PO SCH ×2 (15:44→23:39)
[2020-04-22] MEDS: KETOROLAC TROMETHAMINE 15 MG/ML VIAL IV SCH ×2 (15:44→20:10)
[2020-04-22] MEDS: SODIUM CHLORIDE 0.9% 1000ML 1,000 ML IV SCH (15:45)
[2020-04-22] MEDS: CEFAZOLIN 2000MG 2,000 MG/15 ML SYR IV SCH (19:22)
[2020-04-22] MEDS: DOCUSATE SODIUM 100 MG CAP PO SCH (20:10)
[2020-04-22] MEDS ORDERED: SENNA 8.6 MG TAB PO SCH (21:00)
[2020-04-23] MEDS: SODIUM CHLORIDE 0.9% 1000ML 1,000 ML IV SCH (01:50)
[2020-04-23] MEDS: CEFAZOLIN 2000MG 2,000 MG/15 ML SYR IV SCH (02:07)
[2020-04-23] MEDS: KETOROLAC TROMETHAMINE 15 MG/ML VIAL IV SCH ×2 (02:08→07:42)
[2020-04-23] MEDS: ACETAMINOPHEN 500 MG TAB PO SCH (05:27)
[2020-04-23 06:05] LABS: Hematocrit (blood only) 38.9 % (37-47); Hemoglobin 13.2 g/dL (12.0-16.0); Immature Granulocytes # (auto) 0.05 K/uL (0.00-0.02); Immature Granulocytes % (auto) 0.3 %; Lymphocytes # (auto) 1.27 K/uL (1.2-3.4); Lymphocytes % (auto) 6.5 %; Mean Corpuscular Hemoglobin 30.6 pg (25-34); Mean Corpuscular Hgb Conc 33.9 g/dL (32-36); Mean Platelet Volume 10.2 fL (7.4-10.4); Monocytes # (auto) 1.13 K/uL (0.11-0.59); Monocytes % (auto) 5.8 %; Neutrophils # (auto) 17.14 K/uL (1.4-6.5); Neutrophils % (auto) 87.4 %; Platelet Count 267 K/uL (130-400); RDW Standard Deviation 42.9 fL (36.4-46.3); Red Blood Count 4.32 M/uL (4.2-5.4); White Blood Count 19.59 K/uL (4.8-10.8)
[2020-04-23 06:37] LABS: BUN Creatinine Ratio 18.2 (10-20); Calcium 8.9 mg/dl (8.5-10.1); Creatinine Clr Calc Pharmacy 41.8 ml/min; Est GFR (African American) 70.4; Est GFR (Non-African American) 60.8
--- NOTE | 2020-04-23 07:15 | Orthopedic Progress Note ---
Date of Service April 23, 2020 Assessment & Plan (1) Status post reverse arthroplasty of left shoulder: Overall she is doing very well. She is not having much pain in the left shoulder. She will be seen by physical therapy this morning for ambulation and range of motion exercises. She can be discharged home later today. She will follow-up with orthopedics in 2 weeks. Present on Admission?: Yes Subjective Aziza was seen and examined at bedside this morning. Overall she is doing very well. She is not having much pain in the left shoulder. She was able to get some sleep last night. She has no complaints. Physical Exam Musculoskeletal: On physical examination of the left shoulder, the Silverlon dressing is clean and dry. Her radial, median, and ulnar nerves are checked and intact at her wrist. Her axillary nerve was not checked yet. She is wearing her sling as instructed. Results & Data ([facility]) Vital Signs (Past 12 Hours) Vital Signs Temp Pulse Resp BP Pulse Ox 04/23/20 04:00 36.9 C 88 16 152/69 H 98 04/22/20 22:47 36.6 C 68 16 132/75 97 04/22/20 20:20 36.6 C 75 17 126/61 95 Laboratory Results H & H 04/23/20 Range/Units 05:07 Hgb 13.2 (12.0-16.0) g/dL Hct 38.9 (37-47) % Coagulation 04/18/20 Range/Units 09:26 INR 1.0 (0.9-1.1) Diagnostic Findings Postoperative x-rays of the left shoulder show the prosthesis to be in anatomic alignment without any evidence of fracture, dislocation, or loosening. PG Care Time/CCT Total # of Minutes Spent Total Time Spent with Patient: Total time spent is greater than 50% in coordination of care (as documented) at patient's floor/unit and/or counseling patient: Coding Level of Care Code None Diagnoses Status post reverse arthroplasty of left shoulder Z96.612
--- NOTE | 2020-04-23 07:16 | Discharge Summary ---
Date of Service April 23, 2020 Admission HPI Per Admitting Provider Aziza is a pleasant 84-year-old female who fell back in November. She has been having significant shoulder pain and weakness since. She is unable to do things she is enjoys such as play with her grandkids. X-rays did not look too bad. MRI of her shoulder showed a large retracted rotator cuff tear. There was significant atrophy. This is obviously an acute on chronic tear. After discussions in the office, she elected proceed with a reverse left shoulder arthroplasty. Principal Diagnosis Left reverse shoulder replacement Discharge Data Allergies Allergy/AdvReac Type Severity Reaction Status Date / Time capsaicin Allergy Mild Liver Verified 04/22/20 08:42 complications diclofenac Allergy Mild Liver Verified 04/22/20 08:42 complications Diclopak Allergy Mild "LIVER Verified 01/07/18 11:15 COMPLICATIONS" Sulfa (Sulfonamide Allergy Unknown Itching Verified 04/22/20 08:42 Antibiotics) and redness tetanus toxoid, adsorbed AdvReac Mild Redness, Verified 04/22/20 08:42 warmth morphine AdvReac Unknown Hypotension Verified 04/22/20 08:42 Consultations 04/22/20 13:47 Consult Case Management - Discharge Planning Routine Procedures Performed Operation Date: 04/22/20 10:40 Actual Procedures p Left Reverse Total Shoulder Arthroplasty(Left) - Juan Lindo DO Ordered Studies 04/22/20 05:00 US - OR guided needle placemen Routine Hospital Course (1) Status post reverse arthroplasty of left shoulder: On April 22, [address] [facility] and underwent a left reverse shoulder arthroplasty without complication. She had a general anesthetic and a left interscalene nerve block. Postoperatively she was placed in a sling and transferred to the general orthopedic floors. Her hospital course was uneventful. On postop day #1 her H&H was stable and her pain was well controlled. She was able to participate well with physical therapy doing ambulation and range of motion exercises. She was then discharged home. She will follow-up with orthopedics in 2 weeks. Total Time Total Time Spent Total Time Spent (In Minutes): 20 Discharge Plan Discharge Items Patient Disposition: Home - Home Health Services Reason For Visit: DJD Left Shoulder Discharge Diagnosis: Reverse shoulder arthroplasty Activity: As commented below Non-emergency contact: Surgeon Call non-emergency contact if: your wound has increased redness and your wound has increased drainage Follow-up/Referrals: Valdo Cloud MD [Primary Care Provider] - Diet: Regular Addtl Attending Provider Instructions: Activity and Therapy Recommendations: * If you are using [facility] then therapy will be provided at your home until they feel you have accomplished all of your goals. * If you are using [facility] then Physical Therapy will be provided until they feel you are ready to start Outpatient Physical Therapy. * If you are not using home therapy then Outpatient Physical Therapy should start about 3-5 days from your day of surgery. Therapy will last about 8-12 weeks * Wear your sling for 3 weeks, unless otherwise instructed. You may remove your sling to shower and to dress, but otherwise, you should be in your sling at all times, including while sleeping * The shoulder replacement is very stable and you can use your hand while in the sling * You were shown a series of exercises in the hospital. Do these exercises daily including the exercises you were shown in physical therapy. Medications: * Narcotic You will likely be sent home from the hospital with a prescription for the narcotic pain medication that worked best throughout your stay. * Other medications may be prescribed for specific circumstances. If you have any questions, please call the office at . * Resume previous home medications unless otherwise instructed Dressing Care: Leave the Silverlon dressing in place for 7 days. After 7 days you may remove the dressing. If the incision is not draining then you may leave the jered open to air. If there is a little bit of drainage or if the jered are getting stuck on your clothing then cover the incision with a dry dressing. The jered will be removed at your 2 week follow-up appointment. Showering: You may shower with the Silverlon dressing in place. Let the shower spray hit the other shoulder. You can pat the plastic dry. If the dressing becomes wet underneath the plastic then simply remove the dressing. Keep the incision dry until you are 7 days out from the day of surgery. At that time you can shower with the jered exposed. Let the soapy shower water run over the jered and pat them dry. Do not scrub or soak the incision. Things To Watch For: * Drainage from the incision site that occurs more than one week after your surgery. * Increased redness at the incision site. * Fever above 102 degrees Fahrenheit. * Unusual chest pain or shortness of breath. * Call [facility] at with any of the above problems Follow-Up Visit: Follow-up with Dr. Lindo's PA (Juan Barnard) 2-3 weeks after your day of surgery. He will remove your jered and answer any questions. If you have any additional questions or concerns, Dr Lindo is usually in the office at the same time and will be available An appointment was probably scheduled when you signed-up for surgery in the office. If you have any questions call More detailed instructions as well as Frequently Asked Questions were provided in a folder by our office when you signed-up for surgery. Please review these instructions when you get home. If you have any further questions or concerns, please feel free to call the office at [phone] Pending Studies at Discharge: No Stand-Alone Forms: My [facility], Smoking Cessation Medications and DC Order Prescriptions: New tramadol 50 mg tablet 50 mg PO Q6H PRN (Reason: pain) Qty: 30 RF: 0 Continued calcium carbonate-vitamin D3 600 mg(1,500mg) -400 unit tablet 1 tab PO PM RF: 0 coenzyme Q10 200 mg capsule 200 mg PO QAM RF: 0 cyanocobalamin (vitamin B-12) 1,000 mcg tablet 1,000 mcg PO QAM Qty: 90 RF: 0 cholecalciferol (vitamin D3) 1,000 unit capsule 1,000 unit PO QPM Qty: 90 RF: 0 aspirin [Aspir-81] 81 mg Tablet,Delayed Release (Dr/Ec) 81 mg PO Q OTHER DAY RF: 0 levothyroxine 75 mcg tablet 75 mcg PO QAM RF: 0 28-800 mg-mcg Tablet 1 tab PO DAILY RF: 0 biotin 1 mg Tablet 1 mg PO DAILY RF: 0 Discharge Orders: Discharge Order (Routine); Ordered 04/23/20 Ordered By: Juan Lindo Admission Data Admit Date/Time: 04/22/20 12:21 Attending Provider: Juan Lindo Admit Provider: Juan Lindo Primary Care Provider: Valdo Cloud Coding Level of Care Code D/C Day Management <30 mins Diagnoses Status post reverse arthroplasty of left shoulder Z96.612
[2020-04-23] MEDS: DOCUSATE SODIUM 100 MG CAP PO SCH (07:42)
[2020-04-23] MEDS ORDERED: dexAMETHasone 4 MG TAB PO SCH (08:00)
[2020-04-23] MEDS ORDERED: ASPIRIN 81 MG ECTAB PO SCH (09:00)
[2020-04-23] MEDS ORDERED: LEVOTHYROXINE SODIUM 75 MCG TABLET PO SCH (09:00)
[2020-04-23] MEDS ORDERED: MULTIVITAMIN TAB PO SCH (09:00)
== END 2020-04-23 10:56 | disposition home health service (06) ==
LOC: ASU 08:30 → 3E 12:21 → INTOOBSV 12:21

== ENCOUNTER 2024-02-03 07:30 | Observation (INO) ==
--- NOTE | 2023-10-31 13:27 | PAT Medication Instructions ---
Medication Instructions Date of Service October 31, 2023 Home Medications Medication Instructions Recorded ipratropium bromide 21 mcg (0.03 2 spray intranasal BID PRN nasal 08/30/ %) nasal spray drainage #90 mL meclizine 12.5 mg tablet 12.5 mg PO BID PRN dizziness #30 11/14/22 tabs albuterol sulfate 90 mcg/actuation 1 inh inhalation QID PRN shortness 01/23/23 aerosol inhaler of breath or wheezing #6.7 grams levothyroxine 75 mcg tablet See Rx Instructions .Route 10/28/23 .COMPLEX #90 tabs calcium carbonate 600 mg-vitamin D3 10 mcg (400 unit) tablet 1 tab PO PM cholecalciferol (vitamin D3) 25 mcg (1,000 unit) capsule 1,000 unit PO QPM ipratropium bromide 21 mcg (0.03 %) nasal spray 2 spray intranasal BID PRN meclizine 12.5 mg tablet 12.5 mg PO BID PRN albuterol sulfate 90 mcg/actuation aerosol inhaler 1 inh inhalation QID PRN multivitamin 1 tab PO BID levothyroxine 75 mcg tablet See Rx Instructions .Route .COMPLEX Lactobacillus 40-Bifidobact 3-S.thermophilus 100 billion cell capsule (Probiotic) 1 cap PO DAILY Nutrafol 4 tab PO DAILY P-S 150 1 cap PO QAM biotin 5,000 mcg disintegrating tablet 5,000 mcg PO DAILY coQ10 (ubiquinol) 100 mg capsule 100 mg PO DAILY fluticasone propionate 50 mcg/actuation nasal spray,suspension 2 spray intranasal DAILY PRN lysine 500 mg tablet (L-Lysine) 500 mg PO QAM Continue as directed levothyroxine 75 mcg tablet See Rx Instructions .Route .COMPLEX fluticasone propionate 50 mcg/actuation nasal spray,suspension 2 spray intranasal DAILY PRN(if needed) STOP taking 2 weeks before surgery (or as soon as possible if surgery is within 2 weeks) Nutrafol 4 tab PO DAILY P-S 150 1 cap PO QAM biotin 5,000 mcg disintegrating tablet 5,000 mcg PO DAILY coQ10 (ubiquinol) 100 mg capsule 100 mg PO DAILY lysine 500 mg tablet (L-Lysine) 500 mg PO QAM DO NOT take the morning of surgery multivitamin 1 tab PO BID Lactobacillus 40-Bifidobact 3-S.thermophilus 100 billion cell capsule (Probiotic) 1 cap PO DAILY Take morning of surgery With a small sip of water, OTHERWISE NOTHING TO EAT OR DRINK AFTER MIDNIGHT: ipratropium bromide 21 mcg (0.03 %) nasal spray 2 spray intranasal BID PRN(if needed) meclizine 12.5 mg tablet 12.5 mg PO BID PRN(if needed) albuterol sulfate 90 mcg/actuation aerosol inhaler 1 inh inhalation QID PRN(use if needed; please bring with you to hospital day of surgery if possible) Take evening before surgery calcium carbonate 600 mg-vitamin D3 10 mcg (400 unit) tablet 1 tab PO PM cholecalciferol (vitamin D3) 25 mcg (1,000 unit) capsule 1,000 unit PO QPM ipratropium bromide 21 mcg (0.03 %) nasal spray 2 spray intranasal BID PRN(if needed) meclizine 12.5 mg tablet 12.5 mg PO BID PRN(if needed) albuterol sulfate 90 mcg/actuation aerosol inhaler 1 inh inhalation QID PRN(if needed) multivitamin 1 tab PO BID Other Notes If you have any questions please call us at [phone] or [phone] or [phone] or [phone]
--- NOTE | 2023-11-06 13:29 | Anesthesiology Consultation ---
Date of Service November 06, 2023 Assessment & Plan (1) Encounter for pre-operative examination: - Infectious disease screening: Per assessment on 11/06/23: No known infectious disease contacts or current infectious disease symptoms. No noted recent Covid positive test result. - Outpatient joint assessment: Pt currently scheduled for inpatient pathway. If surgeon requests review for outpatient joint pathway, patient is not a recommended candidate for outpatient joint program from anesthesia standpoint based on available information. - Patient has routine visits with PCP and ENT prior to surgery. Awaiting upcoming PCP (STEVEN, appt 11/18) and ENT (MANINDERG, appt 12/02) office visit notes. Patient otherwise acceptable risk for surgery. Chart Review Chart Review: Patient seen in Pre Admission Testing Teaching & Discussion Pre-Anesthesia Teaching/Discussion Notes: Instructed NPO after midnight before surgery,except medications with 15 cc of water. Medication instructions provided according to the PAT guidelines. History Surgery Operation Date: 12/13/23 07:00 Proposed Procedures p Right Total Hip Arthroplasty Anterior - Juan Lindo, DO Height/Weight Height: 5 ft 4 in Weight: 60.2 kg Allergies Allergy/AdvReac Type Severity Reaction Status Date / Time capsaicin Allergy Mild Liver Verified 10/31/23 12:38 complications diclofenac Allergy Mild Liver Verified 10/31/23 12:38 complications Diclopak Allergy Mild "LIVER Verified 01/07/18 11:15 COMPLICATIONS" morphine AdvReac Unknown Hypotension Verified 10/31/23 12:38 Medications Home Medications Medication Instructions Recorded Confirmed Last Taken calcium carbonate 600 mg-vitamin 1 tab PO PM 02/25/19 10/31/23 04/21/20 21:00 D3 10 mcg (400 unit) tablet cholecalciferol (vitamin D3) 25 1,000 unit PO QPM #90 caps 02/25/19 10/31/23 04/21/20 21:00 mcg (1,000 unit) capsule ipratropium bromide 21 mcg (0.03 2 spray intranasal BID PRN nasal 08/30/22 10/31/23 Unknown %) nasal spray drainage #90 mL meclizine 12.5 mg tablet 12.5 mg PO BID PRN dizziness #30 11/14/22 10/31/23 Unknown tabs multivitamin 1 tab PO BID 01/30/23 10/31/23 Unknown levothyroxine 75 mcg tablet See Rx Instructions .Route 10/28/23 10/31/23 Unknown .COMPLEX #90 tabs Lactobacillus 40-Bifidobact 1 cap PO DAILY 10/31/23 10/31/23 Unknown 3-S.thermophilus 100 billion cell capsule (Probiotic) Nutrafol 4 tab PO DAILY 10/31/23 10/31/23 Unknown P-S 150 1 cap PO QAM 10/31/23 10/31/23 Unknown biotin 5,000 mcg disintegrating 5,000 mcg PO DAILY 10/31/23 10/31/23 Unknown tablet coQ10 (ubiquinol) 100 mg capsule 100 mg PO DAILY 10/31/23 10/31/23 Unknown fluticasone propionate 50 2 spray intranasal DAILY PRN 10/31/23 10/31/23 Unknown mcg/actuation nasal Congestion spray,suspension lysine 500 mg tablet (L-Lysine) 500 mg PO QAM 10/31/23 10/31/23 Unknown Past Medical History Medical History Arthritis Hearing difficulty History of skin cancer Hyperlipidemia "borderline" Hypothyroidism Impaired fasting glucose Mixed hearing loss, bilateral Pulmonary nodule under surveillance, stable Tinnitus, bilateral Vertigo November 2020 (after Covid vaccine) Reason for Meclizine Exercise / Class Metabolic Activity II 4-5 Yardwork/Stairs/Walk up hill Past Family History Family History Mother Cardiac disorder Hypertension Stroke Asthma Father Myocardial infarction Brother Prostate cancer Sister Diabetes Other No family history of adverse response to anesthesia Denies family history of Ovarian cancer Breast cancer Lung cancer Colorectal cancer Past Surgical History Surgical History H/O cataract extraction right/left H/O vaginal hysterectomy History of basal cell carcinoma History of bladder surgery repaired prolapse bladder History of breast biopsy left History of colonoscopy History of liver biopsy History of reverse total replacement of left shoulder joint Left reverse TSA (04/22/2020): MAC#4, ETT 7 + regional at [facility] 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 Physical Exam Vital Signs VITALS BP 155/80 P 73 TEMP 98.0 SP02 100%RA RESP 16 PHYSICAL Full cervical extension range of motion. Full TMJ range of motion. TMD 3 finger breaths Mallampati Score 2 Dentition: lower partial, upper missing molar Lungs: clear throughout to auscultation Cardiac: regular rate and rhythm, no murmurs noted Spine: normal Carotid arteries: negative bruit Extremities: no LE edema Lab Results Anesthesia Preop Results Results Anesthesia Widget: WBC 8.26 K/ul (4.8-10.8) 11/06/23 Hgb 13.7 g/dl (12.0-16.0) 11/06/23 Hct 40.6 % (37.0-47.0) 11/06/23 Plt 304 K/uL (130-400) 11/06/23 Na 137 mmol/L (136-145) 11/06/23 K 4.1 mmol/L (3.5-5.1) 11/06/23 Cl 108 mmol/L (98-107) H 11/06/23 CO2 23 mmol/L (21-32) 11/06/23 BUN 20 mg/dl (6-23) 11/06/23 Creat 0.73 mg/dl (0.6-1.2) 11/06/23 Glucose Level 82 mg/dl (70-99(Fasting)) 11/06/23 PT 10.5 Seconds (9.0-12.0) 11/06/23 PTT 27 Seconds (21-31) 11/06/23 INR 1.0 (0.9-1.1) 11/06/23 Blood Type B Positive 11/06/23 Antibody Screen NEGATIVE 11/06/23 Testing Electrocardiogram Date: 11/06/23 NSR at 66bpm. Chest X-Ray Date: 01/30/23 FINDINGS: Cardiac mediastinal and hilar silhouettes are unchanged. There is no pneumothorax, pleural effusion, airspace consolidation or overt pulmonary edema. Mild chronic interstitial coarsening. Degenerative changes of the spine and right shoulder. Reversed left shoulder total joint arthroplasty. IMPRESSION: No acute processes.
--- NOTE | 2024-01-30 13:18 | History & Physical Report ---
Date of Service January 30, 2024 Assessment & Plan (1) Osteoarthritis of right hip: We will proceed with a right anterior total of arthroplasty. Postoperatively she will be started on aspirin for DVT prophylaxis and kept overnight in the hospital for postop medical management. She plans to have the hospital set up home health before discharge. History of Present Illness Chief Complaint: Osteoarthritis of the right hip. Primary Care Provider: PaulinaGabe LlamasDO Ervin is a pleasant 87-year-old female who has been dealing with chronic increasing right hip pain. It was to the point where about 6 weeks ago, she was unable to ambulate. She saw another provider and was diagnosed with advanced arthritis of the right hip. After failing conservative treatment, she has elected proceed with a right anterior total hip arthroplasty. Allergies Allergy/AdvReac Type Severity Reaction Status Date / Time capsaicin Allergy Mild Liver Verified 01/20/24 09:20 complications diclofenac Allergy Mild Liver Verified 01/20/24 09:20 complications morphine AdvReac Unknown Hypotension Verified 01/20/24 09:20 Home Medications Medication Instructions Recorded Confirmed Type calcium carbonate 600 mg-vitamin 1 tab PO PM 02/25/19 01/20/24 History D3 10 mcg (400 unit) tablet cholecalciferol (vitamin D3) 25 1,000 unit PO QPM #90 caps 02/25/19 01/20/24 History mcg (1,000 unit) capsule ipratropium bromide 21 mcg (0.03 2 spray intranasal BID PRN nasal 08/30/22 01/20/24 Rx %) nasal spray drainage #90 mL multivitamin 1 tab PO BID 01/30/23 01/20/24 History Nutrafol 4 tab PO DAILY 10/31/23 01/20/24 History P-S 150 1 cap PO QAM 10/31/23 01/20/24 History biotin 5,000 mcg disintegrating 5,000 mcg PO DAILY 10/31/23 01/20/24 History tablet coQ10 (ubiquinol) 100 mg capsule 100 mg PO DAILY 10/31/23 01/20/24 History fluticasone propionate 50 2 spray intranasal DAILY PRN 10/31/23 01/20/24 History mcg/actuation nasal Congestion spray,suspension lysine 500 mg tablet (L-Lysine) 500 mg PO QAM 10/31/23 01/20/24 History meclizine 12.5 mg tablet 12.5 mg PO DAILY PRN dizziness #30 04/12/24 04/29/24 Rx tabs P-C 100 1 cap PO QAM 01/20/24 01/20/24 History levothyroxine 75 mcg tablet 75 mcg PO QAM 01/20/24 01/20/24 History Past Med/Surg History Medical History Basilar artery stenosis dx 12/2023, [facility] Vertebral artery stenosis dx 12/2023, [facility] Hx of headache right side of head/neck pain right side, "head got very hot," f/u PCP, given steroid tx and ear drops, also f/u 2 dentists, had 2 MRI's (found to have a narrowing artery in that side of the brain)-pain went on for over 1 month; will be seeing neurology at end of 02/2024 Arthritis Vertigo November 2020 (after Covid vaccine) Reason for Meclizine History of skin cancer Tinnitus, bilateral Mixed hearing loss, bilateral Hypothyroidism Hearing difficulty Hyperlipidemia "borderline" Impaired fasting glucose Pulmonary nodule under surveillance, stable Surgical History History of bladder surgery repaired prolapse bladder History of reverse total replacement of left shoulder joint Left reverse TSA (04/22/2020): MAC#4, ETT 7 + regional at [facility] History of tooth extraction S/P skin biopsy Status post de Quervain's release surgery 09/2019 History of basal cell carcinoma History of breast biopsy left History of colonoscopy History of tonsillectomy History of liver biopsy H/O vaginal hysterectomy Hx of cholecystectomy H/O cataract extraction right/left 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 Family History Mother Cardiac disorder Hypertension Stroke Asthma Father Myocardial infarction Brother Prostate cancer Sister Diabetes Other No family history of adverse response to anesthesia Denies family history of Ovarian cancer Breast cancer Lung cancer Colorectal cancer Social History Smoking Status: Never smoker Second Hand Exposure: Yes (hx); Do You Dip or Chew Tobacco: No; Tobacco Cessation Education Requested by Patient: No Hx Alcohol Use: No Hx Substance Use: No Preferred Language: Greek Communication Ability: Effective Visual Impairment: Limited Hearing Ability: Use of Hearing Aid Brancher Required: No Beliefs That Will Affect Care: None marital status: Current Living Situation: Alone Current Living Situation Comment: dtr lives next door current occupational status: retired How many Children do You have: 1 Other Information That Helps Us Care for You: No Feels Safe at Home: Yes Safety Concerns: Feels Safe At This Time Childhood Exposure to Second-Hand Smoke: No caffeine: Yes (drinks tea ) Dental Care, Regularly: Yes Physical Activity Frequency: Daily Seatbelt Use: always Sunscreen Use: Yes Assistive Devices: Denture - Lower, Hearing Aid - Bilateral and Other Assistive Devices Comment: partial lower denture and 1 tooth denture on top Review of Systems All systems reviewed & are unremarkable except as noted in HPI & below. Physical Exam Physical examination of the right hip, she has decreased range of motion. She has pain with forced internal/external rotation. Constitutional WD/WN, vitals as above Eyes PERRL, conjunctivae normal, anicteric sclerae ENMT external ear and nose normal, oropharynx normal Neck trachea midline, no thyromegaly Respiratory normal respiratory effort Cardiovascular RRR, no murmur, no edema Gastrointestinal (Abdomen) normal bowel sounds, soft, nontender, no hepatosplenomegaly Psychiatric A+Ox3, euthymic affect Results & Data Results & Data Laboratory Results . Diagnostic Findings X-rays of the right shoulder show advanced osteoarthritis with joint space narrowing, osteophyte formation, and [id number] tubulation. . PG Care Time/CCT Total # of Minutes Spent Total Time Spent with Patient: Total time spent is greater than 50% in coordination of care (as documented) at patient's floor/unit and/or counseling patient: Coding Level of Care Code None Diagnoses Osteoarthritis of right hip M16.11
[~2024-02-03 07:30] MED LIST changes: -ACETAMINOPHEN 500 MG TAB PO SCH; -CEFAZOLIN 1000MG 1,000 MG/7.5 ML SYR IV SCH; -FAMOTIDINE 20 MG TAB PO SCH; -GABAPENTIN 300 MG CAP PO SCH; -LR 15ML/HR IV SCH; -LR 60ML/HR IV SCH; -ROPIVACAINE 0.5% HCL/PF 150 MG, BUPIVACAINE 0.5% MPF 30 ML, EPINEPHrine 30MG/30ML (OR U... INSTIL SCH; -TRANEXAMIC ACID 1,000 MG **IV Intra-op IV SCH; -TRANEXAMIC ACID 1,000 MG **IV Pre-op IV SCH; -dexAMETHasone 4 MG TAB PO SCH
[2024-02-03] MEDS ORDERED: MIDAZOLAM HCL 1 MG/ML 2ML VIAL ONE (07:45)
[2024-02-03] MEDS ORDERED: fentaNYL citrate PF 100 MCG/2 ML VIAL ONE (07:45)
--- NOTE | 2024-02-03 07:53 | History & Physical Bridge Note ---
Date of Service February 03, 2024 History & Physical Bridge Note I have examined the patient, reviewed the History & Physical and in the interval since the performance of the History & Physical I have noted the following changes of clinical significance: no changes noted
[2024-02-03] MEDS ORDERED: ATROPINE SULFATE 0.1 MG/ML 10ML SYR IV PRN (08:11)
[2024-02-03] MEDS ORDERED: ONDANSETRON INJ 2 MG/ML 2 ML VIAL IV PRN ×2 (08:11→11:42)
[2024-02-03] MEDS ORDERED: ePHEDrine sulfate 50 MG/ML AMP IV PRN (08:11)
[2024-02-03] MEDS ORDERED: fentaNYL citrate PF 100 MCG/2 ML VIAL IV PRN (08:11)
[2024-02-03] MEDS: ACETAMINOPHEN 500 MG TAB PO SCH ×2 (08:34→13:59)
[2024-02-03] MEDS: dexAMETHasone**PF** 10 MG/ML VIAL IV SCH (08:34)
[2024-02-03] MEDS: LR 500ML BOLUS, THEN 15ML/HR IV SCH (08:34)
[2024-02-03] MEDS: LR 60ML/HR IV SCH (08:35)
[2024-02-03] MEDS: GABAPENTIN 300 MG CAP PO SCH (08:35)
[2024-02-03] MEDS: FAMOTIDINE 20 MG TAB PO SCH (08:35)
[2024-02-03] MEDS: TRANEXAMIC ACID 1,000 MG **IV Pre-op IV SCH (08:45)
[2024-02-03] MEDS: ceFAZolin 2000MG 2,000 MG/15 ML SYR IV SCH ×2 (08:55→17:27)
[2024-02-03] MEDS ORDERED: ONDANSETRON INJ 2 MG/ML 2 ML VIAL ONE (09:07)
[2024-02-03] MEDS ORDERED: PROPOFOL IV EMULSION 10 MG/ML 20 ML VIAL IV ONE (09:07)
[2024-02-03] MEDS ORDERED: LIDOCAINE 2% 2 ML VIAL/AMP(20MG/ML) INFIL ONE (09:07)
[2024-02-03] MEDS ORDERED: ePHEDrine sulfate 50 MG/5 ML SYR ONE (09:14)
[2024-02-03] MEDS: ROPIV 0.5% 246mg, Ketorolac 30mg, EPINEPHrine 0.5mg in NSS INFIL SCH (09:38)
[2024-02-03] MEDS: ORTHO JOINT ANESTHETIC ONE (09:38)
[2024-02-03] MEDS ORDERED: PHENYLEPHRINE 100MCG/ML 10ML SYR IV ONE (09:53)
[2024-02-03] MEDS: TRANEXAMIC ACID 1,000 MG **IV Intra-op IV SCH (09:53)
--- NOTE | 2024-02-03 09:57 | Operative Report ---
PG Post Operative Report Pre & Post Diagnosis Operation Date: 02/03/24 09:00 Pre-Op Diagnosis: Degenerative joint disease hip right. Post-Op Diagnosis: Degenerative joint disease hip right. I identified the patient and participated in the time-out.: Yes Procedure Operation Date: 02/03/24 09:00 Actual Procedures p Right Total Hip Arthroplasty Anterior(Right) - Juan Lindo DO Surgeon Juan Lindo DO Automation Qa Lead Juan Barnard PA-C Estimated Blood Loss 250 Findings Consistent with Post-Op Diagnosis Specimens Right femoral head Description of Procedure Implants used I used a ZimmerBiomet total hip arthroplasty system with a size 3 standard offset Avenir Complete stem, a 50 mm G7 cup with a 25mm screw, an E1 poly ethylene liner, a 36 mm ceramic head with a 0 neck. Aziza arrived at the hospital for the above procedure. She was seen in the preoperative holding area and the operative extremity was identified and signed. She was given a spinal anesthetic, a preoperative antibiotic, and TXA. She was then taken back to the operating room and laid on the table in the supine position. She was given basic sedation. The operative leg was secured to a Puristst leg positioner. The hip was then prepped and draped in sterile fashion. A timeout was done and the patient and the operative extremity was properly identified. An anterior approach was used. Dissection was taken down through the fascia and the tensor muscle belly was retracted laterally and the rectus was retracted medially. The circumflex vessels were identified and ligated. The capsule was then incised and tagged for later repair. The femoral neck was then cut and the femoral head was removed. The acetabulum was exposed. Time was spent doing a complete circumferential labral release. Sequential reaming of the acetabulum up to a size 49 reamer was done. Final reamings were done under fluoroscopy to ensure appropriate version. A Biomet 50 mm G7 cup was then impacted into place. A single 25 mm screw was placed. The E1 polyethylene liner was then snapped into place. Surrounding soft tissues were then injected with 100 cc of an orthopedic pain control cocktail. The proximal femur was then exposed. Sequential broaching up to a size 3 broach was done. Off that broach a size 36 head with a 0 neck was trialed. The hip w as reduced and fluoroscopic images showed anatomic alignment of the implants in acceptable length. The broach was removed. The final size 3 standard offset Avenir Complete stem was then impacted into place. A ceramic 36 mm head with a 0 neck was then impacted onto the stem and the hip was reduced. Final fluoroscopic images showed anatomic alignment of the hip. The capsule was then closed with #1 Vicryl suture. A dilute betadyne lavage was then done for 3 minutes. The joint was then irrigated with normal saline solution. The fascia was closed with #1 PDS suture. Skin was closed with 2-0 Vicryl, jered, and a Silverlon dressing. She was then transferred to a hospital bed and taken to the post anesthesia care unit in stable condition. She tolerated the procedure well. Juan Barnard PA-C, was present for the entire procedure. He was critical for patient positioning, prepping, draping, retraction exposure, wound closure and application of sterile dressing. I attest to the content of the Intraoperative Record and any orders documented therein. Any exceptions are noted below.
--- NOTE | 2024-02-03 10:37 | XRay Report ---
XR hip 1V RT w pelvis HISTORY: 88 years-old Female IN PACU - Post Surgical right hip arthroplasty COMPARISON: Fluoroscopic images of same day TECHNIQUE: AP view of the pelvis with crosstable lateral view of the right hip FINDINGS: Right hip arthroplasty demonstrates satisfactory alignment. Lateral skin jered are present along wi th expected postoperative soft tissue swelling with deep tissue air. Mild left hip osteoarthritis. No acute fracture or dislocation. IMPRESSION: Right hip arthroplasty with expected postoperative changes. ACT 112: Negative or not required by law. The above report was generated using voice recognition software. It may contain grammatical, syntax o r spelling errors. Electronically signed by: Hadley Sawyer M.D. 02/03/2024 10:36 AM
--- NOTE | 2024-02-03 10:49 | Fluoroscopy Report ---
FL hip RT 1V CLINICAL HISTORY: RT ANTERIOR CHELSY COMPARISON STUDY: Right hip radiographs September 11, 2023. FLUOROSCOPY TIME: 10 seconds. Ka, r: 1.2058 mGy FLUOROSCOPIC IMAGES: 1 FINDINGS: Fluoroscopy was provided during anterior total right hip arthroplasty. Hardware is intact. There is no periprosthetic fracture or unexpected radiopaque foreign body. IMPRESSION: Fluoroscopy provided during anterior total right hip arthroplasty. ACT 112: Negative or not required by law. Electronically signed by: Ace Vega M.D. 02/03/2024 10:47 AM
--- NOTE | 2024-02-03 11:17 | Anesthesiology Progress Note ---
Date of Service February 03, 2024 Anesthesia Post Procedure Vital Signs Vital Signs: Temp Pulse Pulse Resp BP Pulse Ox O2 Del Method 02/03/24 11:05 36.3 C L 70 15 138/62 98 Room Air 02/03/24 10:55 72 15 126/60 97 Room Air 02/03/24 10:45 71 17 125/55 L 98 Room Air 02/03/24 10:35 72 17 117/60 100 Room Air 02/03/24 10:25 72 18 123/58 L 100 Oxymask 02/03/24 10:17 36.0 C L 77 19 117/50 L 98 Oxymask 02/03/24 08:10 36.5 C 70 20 165/77 H 100 Room Air O2 Flow Rate 02/03/24 11:05 02/03/24 10:55 02/03/24 10:45 02/03/24 10:35 02/03/24 10:25 4 02/03/24 10:17 8 02/03/24 08:10 Notes Mental Status: alert / awake / arousable Patient Amnestic to Procedure: Yes Nausea / Vomiting: adequately controlled Pain: adequately controlled Airway Patency, RR, SpO2: stable & adequate BP & HR: stable & adequate Hydration State: stable & adequate Neuraxial Anesthesia: was administered and sensory block is resolving Anesthetic Complications: no major complications apparent
[2024-02-03] MEDS ORDERED: HYDROmorphone INJ 0.5 MG/0.5 ML SYR IV PRN (11:42)
[2024-02-03] MEDS ORDERED: NALOXONE HCL 0.4 MG/1 ML VIAL/CARP IV PRN (11:42)
[2024-02-03] MEDS ORDERED: oxyCODONE HCL IR 5 MG TAB (IMMEDIATE RELEASE) PO PRN (11:42)
[2024-02-03] MEDS ORDERED: FLUTICASONE PROPIONATE NA SPR 16 GM BTL PRN (11:42)
[2024-02-03] MEDS ORDERED: MECLIZINE 12.5 MG TAB PO PRN (11:42)
[2024-02-03] MEDS ORDERED: METOCLOPRAMIDE HCL INJ 5 MG/ML 2 ML VIAL IV PRN (11:42)
[2024-02-03] MEDS ORDERED: bisacodyL 10 MG SUPP PR PRN (11:42)
[2024-02-03] MEDS ORDERED: MAGNESIUM HYDROXIDE SUSP 30 ML UDC PO PRN (11:42)
[2024-02-03] MEDS ORDERED: IPRATROPIUM BROMIDE NASAL SPRAY 0.06% 15ML NAE PRN (11:51)
[2024-02-03] MEDS: SODIUM CHLORIDE 0.9% 1,000 ML IV SCH (12:31)
[2024-02-03] MEDS: SENNA 8.6 MG TAB PO SCH (20:27)
[2024-02-03] MEDS: DOCUSATE SODIUM 100 MG CAP PO SCH (20:27)
[2024-02-03] MEDS: ASPIRIN 81 MG ECTAB PO SCH (20:27)
[2024-02-04] MEDS: LEVOTHYROXINE SODIUM 75 MCG TABLET PO SCH (05:48)
--- NOTE | 2024-02-04 06:56 | Orthopedic Progress Note ---
Date of Service February 04, 2024 Assessment & Plan (1) Status post right hip replacement: Overall she is doing fairly well. She is not having too much pain in the hip today. She is on aspirin for DVT prophylaxis. She does live alone. She has family nearby and was hoping to return home. I think it is best if we kept her in the hospital today for ambulation and pain control. Case management will have time to see her today. We will have a better idea of discharge planning for tomorrow. Subjective Aziza was seen and examined at bedside this morning. Overall she is doing fairly well. She has been up and ambulating to the bathroom. Her hip is a little bit sore but it is not too bad. She has no other complaints.. Review of Systems All systems reviewed & are unremarkable except as noted in HPI & below. Physical Exam On physical examination of the right hip, the dressing is clean and dry. Her leg is out in full extension. She has active dorsiflexion plantarflexion of the right ankle.. Results & Data Results & Data Laboratory Results . Diagnostic Findings Postoperative x-rays of the right hip show the prosthesis to be in anatomic alignment without any evidence of fracture, desiccation, or loosening.. PG Care Time/CCT Total # of Minutes Spent Total Time Spent with Patient: Total time spent is greater than 50% in coordination of care (as documented) at patient's floor/unit and/or counseling patient: Coding Level of Care Code 97074 Post Operative Follow-Up Diagnoses Status post right hip replacement Z96.641
[2024-02-04] MEDS: dexAMETHasone 4 MG TAB PO SCH (08:27)
[2024-02-04] MEDS: MULTIVITAMIN TAB PO SCH (08:27)
--- NOTE | 2024-02-05 07:08 | Orthopedic Progress Note ---
Date of Service February 05, 2024 Assessment & Plan (1) Status post right hip replacement: Overall she is doing well with regards to her hip. She is up and ambulating the hallways yesterday. She is on aspirin for DVT prophylaxis. However, she said she does not feel safe going home. She would like to go to a rehab facility. Case management should see her today for bed availability at a rehab facility. She is orthopedically stable for discharge when a bed becomes available. Manish Ervin was seen and examined at bedside this morning. Overall she is doing okay. She was able to participate well yesterday with physical therapy. She ambulated around the hallways late last night. She has no new complaints.. Review of Systems All systems reviewed & are unremarkable except as noted in HPI & below. Physical Exam On physical examination the right hip, the dressing is clean and dry. Her legs are full tension. She is active dorsiflexion plantarflexion of her right ankle.. Results & Data Results & Data Laboratory Results . Diagnostic Findings . PG Care Time/CCT Total # of Minutes Spent Total Time Spent with Patient: Total time spent is greater than 50% in coordination of care (as documented) at patient's floor/unit and/or counseling patient: Coding Level of Care Code 01668 Post Operative Follow-Up Diagnoses Status post right hip replacement Z96.641
--- NOTE | 2024-02-06 12:36 | Orthopedic Progress Note ---
Date of Service February 06, 2024 Assessment & Plan (1) Status post right hip replacement: Overall she is doing very well. She is not having much pain in the hip. She has been participating very well with physical therapy. She feels safe returning home with in-house physical therapy. She can be discharged home today. She is on aspirin for DVT prophylaxis. Manish Ervin was seen and examined at bedside this morning. Overall she is doing fairly well. She is not having much pain in the hip. She has been doing very well with physical therapy. She has no complaints.. Review of Systems All systems reviewed & are unremarkable except as noted in HPI & below. Physical Exam On physical examination of the right hip, the dressing is clean and dry. She has active dorsiflexion plantarflexion of her right ankle.. Results & Data Results & Data Laboratory Results . Diagnostic Findings . PG Care Time/CCT Total # of Minutes Spent Total Time Spent with Patient: Total time spent is greater than 50% in coordination of care (as documented) at patient's floor/unit and/or counseling patient: Coding Level of Care Code 95820 Post Operative Follow-Up Diagnoses Status post right hip replacement Z96.641
--- NOTE | 2024-02-06 12:38 | Discharge Summary ---
Date of Service February 06, 2024 Admission HPI (Per Admitting) Aziza is a pleasant 87-year-old female who has been dealing with chronic increasing right hip pain. It was to the point where about 6 weeks ago, she was unable to ambulate. She saw another provider and was diagnosed with advanced arthritis of the right hip. After failing conservative treatment, she has elected proceed with a right anterior total hip arthroplasty. Admission Exam (Per Admitting) Physical examination of the right hip, she has decreased range of motion. She has pain with forced internal/external rotation. Principal Diagnosis Same as "Discharge Diagnosis" noted below under Discharge Instructions. Discharge Exam On physical examination of the right hip, the dressing is clean and dry. She has active dorsiflexion plantarflexion of her right ankle.. Discharge Data Procedures Performed Operation Date: 02/03/24 09:00 Actual Procedures p Right Total Hip Arthroplasty Anterior(Right) - Juan Lindo DO Ordered Studies 02/03/24 09:00 FL hip RT 1V Routine Hospital Course (1) Status post right hip replacement: On February 03, 2024 Aziza arrived at [facility] and underwent a right hip replacement without complication. She had a spinal anesthetic. Postoperatively she was started on aspirin for DVT prophylaxis and transferred to the general orthopedic floors. Her hospital course was uneventful. On postop day #1, she her vital signs were stable and her pain was well-controlled. She was able to participate well with physical therapy doing ambulation and range of motion exercises. However, she lives alone and did not feel safe going home. On postop day #2 she continued to do well. Her pain was well-controlled. Case management was looking into rehab admission. On postop day #3 she continued to do well. She is doing very well with physical therapy. Insurance was unlikely to approve any rehab stays. She was feeling well enough to go home. She will be cared for by her daughter. She was then discharged home. She will follow-up orthopedics in 2 weeks. PG Care Time/CCT Total # of Minutes Spent Total Time Spent with Patient: Total time spent is greater than 50% in coordination of care (as documented) at patient's floor/unit and/or counseling patient: Discharge Plan Discharge Items Patient Disposition: Transfer Senior Living Fac Reason For Visit: DJD Hip Right Discharge Diagnosis: Right hip replacement Activity: As commented below Non-emergency contact: Surgeon Call non-emergency contact if: your wound has increased redness and your wound has increased drainage Follow-up/Referrals: Yadira Llamas DO [Primary Care Provider] - Diet: Regular Addtl Attending Provider Instructions: Activity and Therapy Recommendations: * If you are using [facility] then therapy will be provided at your home until they feel you have accomplished all of your goals. * If you are using [facility] then Physical Therapy will be provided until they feel you are ready to start Outpatient Physical Therapy. * If you are not using home therapy then Outpatient Physical Therapy should start about 3-5 days from your day of surgery. Therapy will last about 6-10 weeks * You were shown a series of exercises in the hospital. Do these exercises three times each day including the exercises you were shown in physical therapy. * Get up and walk several times each day.~ For the first four weeks, try not to stand or walk for more than one hour at a time. If you do stand or walk for more than one hour, you will not hurt anything, but your leg will likely swell.~~ * As you feel comfortable, you may change from the walker or crutches to a cane and~then to independent walking. Medications: * Narcotic You will likely be sent home from the hospital with a prescription for the narcotic pain medication that worked best throughout your stay. * Cefadroxil -take the antibiotic twice a day for 10 days to help with infection. * Aspirin Most patients will be required to take Aspirin 81mg twice a day for 6 weeks after surgery. This is obtained [id number] and a prescription is not necessary. * Other medications may be prescribed for specific circumstances. If you have any questions, please call the office at . * Resume previous home medications unless otherwise instructed TEDs/Elastic Stockings: The white elastic stockings help limit swelling and prevent blood clots from forming in your legs. The more you wear them, the more they work. Wear them for six weeks. Dressing Care: Leave the Silverlon dressing in place for 7 days. After 7 days you may remove the dressing. If the incision is not draining then you may leave the jered open to air. If there is a little bit of drainage or if the jered are getting stuck on your clothing then cover the incision with a dry dressing. The jered will be removed at your 2 week follow-up appointment. Showering: You may shower with the Silverlon dressing in place. Do not let the shower spray hit the dressing directly. Pat the Silverlon dressing dry. If the dressing becomes wet underneath, then simply remove the dressing. Keep the incision dry until you are 7 days out from the day of surgery. After 7 days you may remove the Silverlon dressing and shower with the jered exposed. Let soapy water run over the jered and pat them dry. Do not scrub or soak the incision. Things To Watch For: * Drainage from the incision site that occurs more than one week after your surgery. * Increased redness at the incision site. * Fever above 102 degrees Fahrenheit. * Unusual chest pain or shortness of breath. * Call [facility] at with any of the above problems Follow-Up Visit: Follow-up with Dr. Lindo's PA (Juan Barnard) 2-3 weeks after your day of surgery. He will remove your jered and answer any questions. If you have any additional questions or concerns, Dr Lindo is usually in the office at the same time and will be available An appointment was probably scheduled when you signed-up for surgery in the office. If you have any questions call Office Instructions: More detailed instructions as well as Frequently Asked Questions were provided in a folder by our office when you signed-up for surgery. Please review these instructions when you get home. If you have any further questions or concerns, please feel free to call the office at [phone] Pending Studies at Discharge: No Stand-Alone Forms: My [facility] Skilled Items Patient informed of condition?: Yes DNR: No Discharge Level of Care: Skilled Communicable Disease: No Discharge Prognosis: Improving Lines: None Urinary Catheter: No Medications and DC Order Prescriptions: New tramadol 50 mg tablet 50 mg PO Q6H PRN (Reason: pain) Qty: 30 0RF cefadroxil 500 mg capsule 500 mg PO BID 10 Days Qty: 20 0RF aspirin 81 mg Tablet,Delayed Release (Dr/Ec) 81 mg PO BID 42 Days Qty: 84 0RF Continued ipratropium bromide 21 mcg (0.03 %) spray,non-aerosol 2 spray intranasal BID PRN (Reason: nasal drainage) Qty: 90 5RF Rx Instructions: administer into each nostril meclizine 12.5 mg tablet 12.5 mg PO DAILY PRN (Reason: dizziness) Qty: 30 1RF (DME) Wheeled Walker Misc See Rx Instructions .MEDSUPPLY Qty: 1 0RF Rx Instructions: As directed (DME) 3-in-1 Commode Misc See Rx Instructions .MEDSUPPLY Qty: 1 0RF Rx Instructions: As directed calcium carbonate-vitamin D3 600 mg(1,500mg) -400 unit tablet 1 tab PO PM cholecalciferol (vitamin D3) 1,000 unit capsule 1,000 unit PO QPM Qty: 90 multivitamin Tablet 1 tab PO BID lysine [L-Lysine] 500 mg Tablet 500 mg PO QAM coQ10 (ubiquinol) 100 mg Capsule 100 mg PO DAILY Nutrafol 4 tab PO DAILY P-S 150 1 cap PO QAM fluticasone propionate 50 mcg/actuation spray,suspension 2 spray INTNAS DAILY PRN (Reason: Congestion) Rx Instructions: administer into each nostril biotin 5,000 mcg Tablet,Disintegrating 5,000 mcg PO DAILY P-C 100 1 cap PO QAM levothyroxine 75 mcg tablet 75 mcg PO QAM Rx Instructions: TAKE 1 TABLET BY MOUTH EVERY MORNING Discharge Orders: Discharge Order (Routine); Ordered 02/06/24 Ordered By: Juan Lindo Admission Data Admit Date/Time: 02/03/24 10:18 Attending Provider: Juan Lindo Admit Provider: Juan Lindo Primary Care Provider: Yadira Llamas
== END 2024-02-06 14:14 | disposition home health service (06) ==
LOC: 3E 07:30 → ASU 07:30